=== PATIENT | male | born 1950 | race Hispanic/Latino ===

== ENCOUNTER → 2019-09-09 | Outpatient (CLI) | payer OTHER | END | disposition home or self-care (01) | LOC: OIH 14:16 | PROVIDERS: ATTEND Internal Medicine Cardiovascular Disease | DX: Z13.6 Encounter for screening for cardiovascular disorders (principal) ==

== ENCOUNTER 2021-03-08 06:52 | Day surgery (SDC) | payer OTHER ==
[2021-03-04 12:03] LABS: BASOPHILS % (AUTO) 0.6 % (0.0-5.0); EOSINOPHILS % (AUTO) 2.1 % (0.0-8.0); HEMATOCRIT 45.4 % (42-54); LYMPHOCYTES % (AUTO) 23.5 % (21.0-51.0); MEAN CORPUSCULAR HEMOGLOBIN 32.3 pg (27.0-33.0); MEAN CORPUSCULAR HGB CONC 34.1 g/dL (32.0-36.0); MEAN CORPUSCULAR VOLUME 94.6 fL (79-99); MONOCYTES % (AUTO) 11.8 % (3.0-13.0); NEUTROPHILS % (AUTO) 61.8 % (40.0-77.0); PLATELET COUNT (AUTO) 194 K/uL (130-400); RED CELL DISTRIBUTION WIDTH 12.7 % (11.0-15.5); WHITE BLOOD COUNT (AUTO) 5.2 K/uL (4.8-10.8)
[2021-03-04 12:10] LABS: APPEARANCE,URINE Clear (CLEAR); BILIRUBIN,URINE Negative (NEGATIVE); COLOR,URINE Yellow (YELLOW); GLUCOSE, URINE (UA) Negative (NEGATIVE); KETONES,URINE Negative (NEGATIVE); LEUKOCYTE ESTERASE ,URINE Negative (NEGATIVE); NITRATE,URINE Negative (NEGATIVE); OCCULT BLOOD,URINE Negative (NEGATIVE); PH,URINE 5.5 (5.0-8.0); PROTEIN,URINE Negative (NEGATIVE); UROBILINOGEN,URINE 0.2 mg/dL (0.2-1.0)
[2021-03-04 12:14] LABS: CREATININE 1.1 mg/dL (0.5-1.5); POTASSIUM 4.1 mmol/L (3.5-5.1)
[2021-03-04 12:19] LABS: INR 0.97 (0.85-1.15); PROTHROMBIN TIME 10.6 SEC (9.6-11.6)
[2021-03-04 12:21] LABS: PARTIAL THROMBOPLASTIN TIME 27.4 SEC (26.3-35.5)
[~2021-03-08] VITALS: Ht 172.7 cm; Wt 122.3 kg
[2021-03-08] VITALS (13 sets, daily range): BP systolic 103–149; BP diastolic 65–86
[~2021-03-08 06:52] MED LIST: 0.9% NACL 500ML IV.SOLN 500 ML IV SCH; ASPI-1443 PO; ATEN50TA PO; ATOR20TA65 PO; CLON2TAB11 PO; LISI10TA24 PO
[2021-03-08] MEDS ORDERED: 0.9%NACL 1000ML 1,000 ML IV ONE (08:05)
[2021-03-08] MEDS ORDERED: NICARDIPINE 25MG INJ IV ONE (09:12)
[2021-03-08] MEDS ORDERED: IOHEXOL-350 50ML VIAL IV ONE (09:12)
[2021-03-08] MEDS ORDERED: HEPARIN 10,000 UNIT/10ML (1,000 UNIT/ML) VIAL ONE (09:12)
[2021-03-08] MEDS ORDERED: IOHEXOL 350 MG/ML 100ML INFUS..BTL IV ONE ×2 (09:12→09:53)
[2021-03-08] MEDS ORDERED: NITROGLYCERIN 2 MG VIAL IV ONE (09:12)
[2021-03-08] MEDS ORDERED: MEPERIDINE-PF 25 MG/ML SYG ONE ×2 (09:13→09:43)
[2021-03-08] MEDS ORDERED: SODIUM BICARB 50MEQ 50ML VIAL 50 ML ONE (09:13)
[2021-03-08] MEDS ORDERED: MIDAZOLAM HCL 1 MG/ML 2ML VIAL ONE ×2 (09:13→09:43)
[2021-03-08] MEDS ORDERED: LIDOCAINE HCL 400MG/20ML VIAL ONE (09:13)
[2021-03-08] MEDS ORDERED: 0.9%NACL 1000ML 1,000 ML IV SCH (10:30)
== END 2021-03-08 15:00 | disposition home or self-care (01) ==
LOC: DAH 06:52
PROVIDERS: ATTEND Internal Medicine Cardiovascular Disease
DX: I25.10 Atherosclerotic heart disease of native coronary artery without angina pectoris (principal); I10 Essential (primary) hypertension; F41.9 Anxiety disorder, unspecified; E78.5 Hyperlipidemia, unspecified; E86.0 Dehydration; Z79.01 Long term (current) use of anticoagulants; Z79.899 Other long term (current) drug therapy
CPT/HCPCS: 36415; 71045; 80048; 81003; 85025; 85610; 85730; 93458; 96360; 96361; A4215; A4216; A4221; A4222; A4223 ×3; A4663; A6258; A6402; C1769; C1894; J1644 ×2; J2175 ×2; J2250 ×2; J3490 ×4; J7030; Q9965; Q9967 ×2; 93005; 99156; 99157